=== PATIENT | female | born 1960 | race American Indian/Alaskan Native ===

== ENCOUNTER 2018-11-16 08:12 | Day surgery (SDC) | payer MEDICARE, MEDICAID ==
[2018-11-16] MEDS ORDERED: fentaNYL 100 MCG/2 ML SDV ONE (09:56)
[2018-11-16] MEDS ORDERED: Midazolam 1 MG/ML 2 ML SDV ONE (09:56)
[2018-11-16] MEDS ORDERED: Propofol 200 MG/20 ML SDV ONE (09:56)
[2018-11-16] MEDS ORDERED: Ondansetron 4 MG/2 ML SDV ONE (10:03)
[2018-11-16] MEDS ORDERED: Dexamethasone 4 MG/ML 5 ML MDV ONE (10:03)
--- NOTE | 2018-11-16 10:15 | PCM.PREANE ---
Preanesthetic Assessment - Anesthesia/Transfusion/Family Hx Anesthesia History: Prior Anesthesia Without Reaction Family History of Anesthesia Reaction: No Transfusion History: Prior Transfusion Without Reaction Intubation History: Unknown - Review of Systems General: No Symptoms Pulmonary: No Symptoms Cardiovascular: No Symptoms Gastrointestinal: No Symptoms Neurological: No Symptoms Other: Reports: None - Physical Assessment Height: 5 ft 4 in Weight: 70.307 kg ASA Class: 2 Mental Status: Alert & Oriented x3 Airway Class: Mallampati = 2 Dentition: Reports: Normal Dentition Thyro-Mental Finger Breadths: 2 Mouth Opening Finger Breadths: 3 ROM/Head Extension: Full Lungs: Clear to Auscultation, Normal Respiratory Effort Cardiovascular: Regular Rate, Regular Rhythm - Lab Values: Laboratory Last Values WBC 15.30 K/uL (4.0-11.0) H 11/15/18 15:47 RBC 2.64 M/uL (4.30-5.90) L 11/15/18 15:47 Hgb 10.4 g/dL (12.0-16.0) L 11/15/18 15:47 Hct 30.2 % (36.0-46.0) L 11/15/18 15:47 MCV 114.4 fL (80.0-98.0) H 11/15/18 15:47 MCH 39.4 pg (27.0-32.0) H 11/15/18 15:47 MCHC 34.4 g/dL (31.0-37.0) 11/15/18 15:47 RDW Std Deviation 66.9 fl (28.0-62.0) H 11/15/18 15:47 RDW Coeff of Earl 16 % (11.0-15.0) H 11/15/18 15:47 Plt Count 661 K/uL (150-400) H 11/15/18 15:47 MPV 11.20 fL (7.40-12.00) 11/15/18 15:47 Nucleated RBC % 0.0 /100WBC 11/15/18 15:47 Nucleated RBCs # 0 K/uL 11/15/18 15:47 POC Glucose 267 mg/dL (60-110) H 11/16/18 09:57 Urine Color YELLOW 11/15/18 15:47 Urine Appearance CLEAR 11/15/18 15:47 Urine pH 5.5 (5.0-8.0) 11/15/18 15:47 Ur Specific [place] 1.020 (1.001-1.035) 11/15/18 15:47 Urine Protein NEGATIVE mg/dL (NEGATIVE) 11/15/18 15:47 Urine Glucose (UA) >=1000 mg/dL (NEGATIVE) 11/15/18 15:47 Urine Ketones NEGATIVE mg/dL (NEGATIVE) 11/15/18 15:47 Urine Occult Blood NEGATIVE (NEGATIVE) 11/15/18 15:47 Urine Nitrite NEGATIVE (NEGATIVE) 11/15/18 15:47 Urine Bilirubin NEGATIVE (NEGATIVE) 11/15/18 15:47 Urine Urobilinogen 0.2 EU/dL (<2.0) 11/15/18 15:47 Ur Leukocyte Esterase NEGATIVE (NEGATIVE) 11/15/18 15:47 - Allergies Allergies/Adverse Reactions: Allergies Allergy/AdvReac Type Severity Reaction Status Date / Time azithromycin [From Zithromax] Allergy Rash Verified 11/13/18 11:17 - Blood Blood Available: No - Anesthesia Plan Pre-Op Medication Ordered: None - Acknowledgements Anesthesia Type Planned: General Anesthesia Pt an Appropriate Candidate for the Planned Anesthesia: Yes Alternatives and Risks of Anesthesia Discussed w Pt/Guardian: Yes Pt/Guardian Understands and Agrees with Anesthesia Plan: Yes PreAnesthesia Questionnaire HEENT History: Reports: Allergic Rhinitis, Cataract Respiratory History: Reports: Asthma Other Respiratory History: states rarely uses inhaler 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: Musculoskeletal History: Reports: Back Pain, Chronic, Neck Pain, Chronic Endocrine/Metabolic History: Reports: Diabetes, Type II, Hypothyroidism Hematologic History: Reports: Other (See Below) Other Hematologic History: CDA, Congenital Dyserythropoiectic Anemia - Past Surgical History HEENT Surgical History: Reports: Cataract Surgery, Other (See Below) Other HEENT Surgeries/Procedures: nasal cautery for nosebleed GI Surgical History: Reports: Cholecystectomy, Hernia, Abdominal, Other (See Below) Other GI Surgeries/Procedures: Spleenectomy Female Surgical History: Reports: D&C - SUBSTANCE USE Smoking Status *Q: Current Every Day Smoker (one pack lasts 3-4 days at present time) Tobacco Use Within Last Twelve Months: Cigarettes Recreational Drug Use History: Yes Recreational Drug Type: Reports: Marijuana/Hashish - HOME MEDS Home Medications: Home Meds Albuterol [Ventolin HFA] 1 - 2 puff INH ASDIRECTED PRN 11/13/18 [History] Folic Acid 1 mg PO DAILY 11/13/18 [History] Glimepiride 4 mg PO QAM 11/13/18 [History] Levothyroxine 150 mcg PO QAM 11/13/18 [History] Saxagliptin HCl [Onglyza] 5 mg PO DAILY 11/13/18 [History] metFORMIN [Glucophage XR] 1,500 mg PO ACDINNER 11/13/18 [History] - CURRENT (IN HOUSE) MEDS Current Meds: Current Medications Discontinued Medications Dexamethasone (Dexamethasone) Confirm Administered Dose 20 mg .ROUTE .STK-MED ONE Stop: 11/16/18 10:04 Fentanyl (Sublimaze) Confirm Administered Dose 100 mcg .ROUTE .STK-MED ONE Stop: 11/16/18 09:57 Lidocaine HCl (Xylocaine-Mpf 1%) Confirm Administered Dose 5 mls @ as directed .ROUTE .STK-MED ONE Stop: 11/16/18 10:04 Midazolam HCl (Versed 1 Mg/Ml) Confirm Administered Dose 2 mg .ROUTE .STK-MED ONE Stop: 11/16/18 09:57 Ondansetron HCl (Zofran) Confirm Administered Dose 4 mg .ROUTE .STK-MED ONE Stop: 11/16/18 10:04 Propofol (Diprivan 20 Ml) Confirm Administered Dose 200 mg .ROUTE .STK-MED ONE Stop: 11/16/18 09:57
[2018-11-16] MEDS ORDERED: Albuterol/Ipratropium 3.0-0.5 MG/3 ML Neb Soln ONE (11:56)
[2018-11-16] MEDS ORDERED: Lactated Ringers 1,000 ML IV SCH (12:00)
[2018-11-16] MEDS ORDERED: Albuterol/Ipratropium 3.0-0.5 MG/3 ML Neb Soln NEB ONE (12:01)
[2018-11-16] MEDS ORDERED: fentaNYL 100 MCG/2 ML SDV IVPUSH PRN (12:28)
--- NOTE | 2018-11-16 12:36 | PCM.OPNOTE ---
- General Post-Op/Procedure Note Date of Surgery/Procedure: 11/16/18 Operative Procedure(s): Hystoscopy,D&C Pre Op Diagnosis: Bleeding Post-Op Diagnosis: Same Anesthesia Technique: General LMA Primary Surgeon: Ezequiel Araiza EBL in mLs: 20 Complications: None Condition: Good
--- NOTE | 2018-11-16 12:37 | PCM.DCSUM1 ---
Discharge Summary - Hospital Course Diagnosis: Stroke: No - Discharge Data Discharge Date: 11/16/18 Discharge Disposition: Home, Self-Care 01 Condition: Good - Patient Summary/Data Operative Procedure(s) Performed: Hystoscopy,D&C - Patient Instructions Diet: Usual Diet as Tolerated Activity: As Tolerated Driving: Do Not Drive Showering/Bathing: May Shower - Discharge Plan Home Medications: Home Meds Albuterol [Ventolin HFA] 1 - 2 puff INH ASDIRECTED PRN 11/13/18 [History] Folic Acid 1 mg PO DAILY 11/13/18 [History] Glimepiride 4 mg PO QAM 11/13/18 [History] Levothyroxine 150 mcg PO QAM 11/13/18 [History] Saxagliptin HCl [Onglyza] 5 mg PO DAILY 11/13/18 [History] metFORMIN [Glucophage XR] 1,500 mg PO ACDINNER 11/13/18 [History] - Discharge Summary/Plan Comment DC Time >30 min.: Yes - General Info Date of Service: 11/16/18 Functional Status: Reports: Pain Controlled - Review of Systems General: Reports: No Symptoms HEENT: Reports: No Symptoms Pulmonary: Reports: No Symptoms Cardiovascular: Reports: No Symptoms Gastrointestinal: Reports: No Symptoms Genitourinary: Reports: No Symptoms Musculoskeletal: Reports: No Symptoms Skin: Reports: No Symptoms Neurological: Reports: No Symptoms Psychiatric: Reports: No Symptoms - Patient Data Vitals - Most Recent: Last Vital Signs Temp 36.9 C 11/16/18 09:00 Pulse 87 11/16/18 09:00 Resp 16 11/16/18 09:00 BP 136/61 11/16/18 09:00 Pulse Ox 93 L 11/16/18 09:00 Weight - Most Recent: 70.307 kg Lab Results - Last 24 hrs: Laboratory Results - last 24 hr 11/15/18 11/15/18 11/16/18 Range/Units 15:47 15:47 09:57 WBC 15.30 H (4.0-11.0) K/uL RBC 2.64 L (4.30-5.90) M/uL Hgb 10.4 L (12.0-16.0) g/dL Hct 30.2 L (36.0-46.0) % MCV 114.4 H (80.0-98.0) fL MCH 39.4 H (27.0-32.0) pg MCHC 34.4 (31.0-37.0) g/dL RDW Std Deviation 66.9 H (28.0-62.0) fl RDW Coeff of Earl 16 H (11.0-15.0) % Plt Count 661 H (150-400) K/uL MPV 11.20 (7.40-12.00) fL Nucleated RBC % 0.0 /100WBC Nucleated RBCs # 0 K/uL POC Glucose 267 H (60-110) mg/dL Urine Color YELLOW Urine Appearance CLEAR Urine pH 5.5 (5.0-8.0) Ur Specific [place] 1.020 (1.001-1.035) Urine Protein NEGATIVE (NEGATIVE) mg/dL Urine Glucose (UA) >=1000 (NEGATIVE) mg/dL Urine Ketones NEGATIVE (NEGATIVE) mg/dL Urine Occult Blood NEGATIVE (NEGATIVE) Urine Nitrite NEGATIVE (NEGATIVE) Urine Bilirubin NEGATIVE (NEGATIVE) Urine Urobilinogen 0.2 (<2.0) EU/dL Ur Leukocyte Esterase NEGATIVE (NEGATIVE) Med Orders - Current: Current Medications Fentanyl (Sublimaze) 50 mcg IVPUSH Q5M PRN PRN Reason: Pain (severe 7-10) Stop: 11/17/18 12:28 Lactated Ringer's (Ringers, Lactated) 1,000 mls @ 125 mls/hr IV ASDIRECTED JOHANNY Discontinued Medications Albuterol/Ipratropium (Duoneb 3.0-0.5 Mg/3 Ml) Confirm Administered Dose 3 ml .ROUTE .STK-MED ONE Stop: 11/16/18 11:57 Last Admin: 11/16/18 12:01 Dose: 3 ml Albuterol/Ipratropium (Duoneb 3.0-0.5 Mg/3 Ml) 3 ml NEB ONETIME ONE Stop: 11/16/18 12:02 Dexamethasone (Dexamethasone) Confirm Administered Dose 20 mg .ROUTE .STK-MED ONE Stop: 11/16/18 10:04 Fentanyl (Sublimaze) Confirm Administered Dose 100 mcg .ROUTE .STK-MED ONE Stop: 11/16/18 09:57 Lidocaine HCl (Xylocaine-Mpf 1%) Confirm Administered Dose 5 mls @ as directed .ROUTE .STK-MED ONE Stop: 11/16/18 10:04 Midazolam HCl (Versed 1 Mg/Ml) Confirm Administered Dose 2 mg .ROUTE .STK-MED ONE Stop: 11/16/18 09:57 Ondansetron HCl (Zofran) Confirm Administered Dose 4 mg .ROUTE .STK-MED ONE Stop: 11/16/18 10:04 Propofol (Diprivan 20 Ml) Confirm Administered Dose 200 mg .ROUTE .STK-MED ONE Stop: 11/16/18 09:57 - Exam General: Reports: Alert, Oriented HEENT: Reports: Pupils Equal, Pupils Reactive, EOMI, Mucous Membr. Moist/[place] Neck: Reports: Supple Lungs: Reports: Clear to Auscultation, Normal Respiratory Effort Cardiovascular: Reports: Regular Rate, Regular Rhythm GI/Abdominal Exam: Normal Bowel Sounds, Soft, Non-Tender, No Organomegaly, No Distention, No Abnormal Bruit, No Mass, Pelvis Stable (Female) Exam: Normal External Exam, Normal Speculum Exam, Normal Bimanual Exam Rectal (Female) Exam: Normal Exam, Normal Rectal Tone Back Exam: Reports: Normal Inspection, Full Range of Motion Extremities: Normal Inspection, Normal Range of Motion, Non-Tender, No Pedal Edema, Normal Capillary Refill Skin: Reports: Warm, Dry, Intact Wound/Incisions: Reports: Healing Well Neurological: Reports: No New Focal Deficit Psy/Mental Status: Reports: Alert, Normal Affect, Normal Mood
--- NOTE | 2018-11-16 13:41 | PCM48HPAN ---
Post Anesthesia Note - EVALUATION WITHIN 48HRS OF ANESTHETIC Vital Signs in Normal Range: Yes Patient Participated in Evaluation: Yes Respiratory Function Stable: Yes Airway Patent: Yes Cardiovascular Function Stable: Yes Hydration Status Stable: Yes Pain Control Satisfactory: Yes Nausea and Vomiting Control Satisfactory: Yes SaO2: 95 Resp Rate: 16
--- NOTE | 2018-11-16 15:58 | OR ---
SURGEON: Ezequiel Araiza MD DATE OF PROCEDURE: PREOPERATIVE DIAGNOSIS: Postmenopausal bleeding. POSTOPERATIVE DIAGNOSIS: Postmenopausal bleeding. OPERATION PERFORMED: Hysteroscopy, D and C. DIRECTOR RIVER RESTORATION: OR tech. ANESTHESIA: LMA. ESTIMATED BLOOD LOSS: Less than 20 mL. COMPLICATIONS: None. FINDING: The hysteroscopic finding essentially is normal. The entire uterine cavity is visualized. There is no lesion seen in the endometrial cavity. INDICATIONS FOR SURGERY: This patient does have postmenopausal bleeding. An attempt to do endometrial biopsy in the office was unsuccessful because of the patient's discomfort, so the patient is admitted for hysteroscopy, D and C. PROCEDURE IN DETAIL: The patient was brought to the OR, properly identified. After adequate level of LMA anesthesia, the patient was placed in lithotomy position prepped and draped in sterile fashion as usual. Then straight catheter was used to empty the bladder and a weighted speculum was placed in the vagina, and a single-tooth tenaculum was applied to the cervix. The cervix sequentially dilated to accommodate the hysteroscope. Hysteroscopy was performed. The entire endometrial cavity was visualized. There was no lesion and the endometrial lining is almost atrophied. After ascertaining there was no pathology with the hysteroscopy, the hysteroscope was removed and a gentle D and C was performed. The specimen was collected and sent for histopathology. At this time, the procedure ended. Instrument and sponge count was correct. The patient tolerated the procedure well and went to recovery room in stable general condition. WINTER / MADHAVI /[id number]
== END 2018-11-16 13:50 | disposition home or self-care (01) ==
LOC: MW.SDS 08:12
PROVIDERS: ATTEND Obstetrics & Gynecology
DX: N95.0 Postmenopausal bleeding (principal); E11.9 Type 2 diabetes mellitus without complications; E03.9 Hypothyroidism, unspecified; J45.909 Unspecified asthma, uncomplicated; F17.210 Nicotine dependence, cigarettes, uncomplicated; Z79.84 Long term (current) use of oral hypoglycemic drugs; Z79.899 Other long term (current) drug therapy; Z88.1 Allergy status to other antibiotic agents; Z91.030 Bee allergy status; Z91.048 Other nonmedicinal substance allergy status; Z98.890 Other specified postprocedural states
CPT/HCPCS: 36415; 58558; 81003; 82962; 85027; 94640; J1100; J2001; J2250; J2405; J2704; J3010; J7120; 00952; J7620-GY

== ENCOUNTER 2021-09-30 07:07 | Day surgery (SDC) | payer MEDICARE, MEDICAID, OTHER ==
[~2021-09-30 07:07] MED LIST: Lactated Ringers 1,000 ML IV SCH
[2021-09-30] MEDS ORDERED: fentaNYL 100 MCG/2 ML SDV ONE (07:15)
[2021-09-30] MEDS ORDERED: Propofol 200 MG/20 ML SDV ONE (08:22)
== END 2021-09-30 10:30 | disposition home or self-care (01) ==
LOC: MW.SDS 07:07
PROVIDERS: ATTEND Surgery
DX: K59.00 Constipation, unspecified (principal); J44.9 Chronic obstructive pulmonary disease, unspecified; E11.9 Type 2 diabetes mellitus without complications; E03.9 Hypothyroidism, unspecified; F17.210 Nicotine dependence, cigarettes, uncomplicated; Z88.1 Allergy status to other antibiotic agents; Z91.030 Bee allergy status; Z79.899 Other long term (current) drug therapy; Z79.890 Hormone replacement therapy; Z79.84 Long term (current) use of oral hypoglycemic drugs; Z98.890 Other specified postprocedural states
CPT/HCPCS: 45378; 82947; J2370; J2704; J3010; J7120; 00812

== ENCOUNTER 2024-11-19 13:30 | Emergency (ER) | payer MEDICARE, MEDICAID, OTHER ==
[2024-11-19] MEDS ORDERED: Sodium Chloride 0.9% 2.5 ML Syringe FLUSH PRN (13:49)
[2024-11-19] MEDS ORDERED: Sodium Chloride 0.9% 10 ML Syringe FLUSH PRN (13:49)
[2024-11-19 14:16] LABS: INR 1.04 (0.86-1.11); PTT,PARTIAL THROMBOPLSTIN TIME 23.2 SEC (23.9-30.7)
[2024-11-19 14:21] LABS: HEMATOCRIT 26.8 % (37.0-47.0); HEMOGLOBIN 9.2 g/dL (12.0-16.0); MEAN CORPUSCULAR HEMOGLOBIN 42.4 pg (28.0-32.0); MEAN CORPUSCULAR HGB CONC 34.3 g/dL (32.0-36.0); MEAN CORPUSCULAR VOLUME 123.5 fL (83.0-99.0); MEAN PLATELET VOLUME 11.2 fL (9.4-12.3); PLATELET COUNT,PLT 557 K/uL (150-400); RED BLOOD CELL COUNT 2.17 M/uL (4.10-5.30)
[2024-11-19 14:29] LABS: CALCIUM 8.3 mg/dL (8.5-10.1); CREATININE 1.1 mg/dL (0.6-1.0); EST CRCL DRUG DOSING (CG) 46.49 mL/min; POTASSIUM,K 4.2 mmol/L (3.5-5.1)
[2024-11-19 14:48] LABS: BASOPHILS ABSOLUTE MAN 0.12 K/uL (0.00-0.20); BASOPHILS PERCENT MAN 1 % (0-1); EOSINOPHILS ABSOLUTE MAN 0.24 K/uL (0.00-0.45); EOSINOPHILS PERCENT MAN 2 % (0-6); LYMPHOCYTES ABSOLUTE MAN 7.62 K/uL (1.00-4.80); LYMPHOCYTES PERCENT MAN 63 % (24-44); MONOCYTES ABSOLUTE MAN 0.97 K/uL (0.00-0.80); MONOCYTES PERCENT MAN 8 % (0-8); SEG NEUTROPHILS ABSOLUTE MAN 3.15 K/uL (1.80-7.70); SEG NEUTROPHILS PERCENT MAN 26 % (41-71); TARGET CELLS 1+ SLIGHT
[2024-11-19 14:49] LABS: ACANTHOCYTES 1+ SLIGHT
[2024-11-19 14:53] LABS: SCHISTOCYTES 1+ SLIGHT
[2024-11-19 14:56] LABS: POIKILOCYTOSIS 2+ MODERATE
== END 2024-11-19 15:09 | disposition home or self-care (01) ==
LOC: MW.ED 13:30
DX: E11.65 Type 2 diabetes mellitus with hyperglycemia (principal); D64.9 Anemia, unspecified; J44.9 Chronic obstructive pulmonary disease, unspecified; E11.9 Type 2 diabetes mellitus without complications; E03.9 Hypothyroidism, unspecified; F17.210 Nicotine dependence, cigarettes, uncomplicated; Z88.1 Allergy status to other antibiotic agents; Z91.030 Bee allergy status; Z91.048 Other nonmedicinal substance allergy status; Z91.018 Allergy to other foods; Z79.51 Long term (current) use of inhaled steroids; Z79.899 Other long term (current) drug therapy; Z79.82 Long term (current) use of aspirin; Z79.4 Long term (current) use of insulin
CPT/HCPCS: 36415; 71045; 71045-26; 80048; 82947; 83880; 84484; 85025; 85610; 85730; 93005; 93010; 99283; 99285

== ENCOUNTER 2025-04-07 17:07 | Emergency (ER) | payer MEDICARE, MEDICAID, OTHER ==
[2025-04-07] MEDS ORDERED: Sodium Chloride 0.9% 10 ML Syringe FLUSH PRN (18:17)
[2025-04-07] MEDS ORDERED: Sodium Chloride 0.9% 2.5 ML Syringe FLUSH PRN (18:17)
[2025-04-07 18:38] LABS: MEAN PLATELET VOLUME 10.5 fL (9.4-12.3); NRBC ABSOLUTE 0.05 K/uL (0.00-0.02); NRBC PERCENT 0.4 /100WBC (0.0-0.2); PLATELET COUNT,PLT 795 K/uL (150-400); RED BLOOD CELL COUNT 2.30 M/uL (4.10-5.30); WHITE BLOOD CELL COUNT,WBC 14.18 K/uL (3.9-11.3)
[2025-04-07 19:02] LABS: A/G RATIO 1.2 (0.9-1.6); ALANINE AMINOTRANSFERASE,ALT 19.0 IU/L (14-63); ASPARTATE AMNIOTRANSFERASE,AST 17.0 IU/L (15-37); BILIRUBIN TOTAL 2.8 mg/dL (0.2-1.0); BLOOD UREA NITROGEN,BUN 25.0 mg/dL (7.0-18.0); CARBON DIOXIDE,CO2 29.3 mmol/L (21.0-32.0); CHLORIDE,CL 97.0 mmol/L (98-107); CREATININE 1.1 mg/dL (0.6-1.0); EST CRCL DRUG DOSING (CG) 46.49 mL/min; GLUCOSE RANDOM 353.0 mg/dL (74-106); POTASSIUM,K 5.2 mmol/L (3.5-5.1); PROTEIN TOTAL,TP 7.4 g/dL (6.4-8.2); SODIUM,NA 134.0 mmol/L (136-145)
[2025-04-07 19:05] LABS: ESTIMATED GFR 56.0 mL/min (>60)
[2025-04-07] MEDS: cefTRIAXone 1 GM in Water For Injection, Sterile 10 ML IVPUSH ONE (19:15)
[2025-04-07 19:24] LABS: EOSINOPHILS ABSOLUTE MAN 1.70 K/uL (0.00-0.45); EOSINOPHILS PERCENT MAN 12 % (0-6); LYMPHOCYTES ABSOLUTE MAN 5.67 K/uL (1.00-4.80); LYMPHOCYTES PERCENT MAN 40 % (24-44); MONOCYTES ABSOLUTE MAN 1.28 K/uL (0.00-0.80); MONOCYTES PERCENT MAN 9 % (0-8); SEG NEUTROPHILS ABSOLUTE MAN 5.53 K/uL (1.80-7.70); SEG NEUTROPHILS PERCENT MAN 39 % (41-71)
[2025-04-07 19:25] LABS: ATYPICAL LYMPHOCYTES OCCASIONAL
== END 2025-04-07 20:20 | disposition home or self-care (01) ==
LOC: MW.ED 17:07
DX: L03.114 Cellulitis of left upper limb (principal); E11.9 Type 2 diabetes mellitus without complications; J44.9 Chronic obstructive pulmonary disease, unspecified; E03.9 Hypothyroidism, unspecified; F17.200 Nicotine dependence, unspecified, uncomplicated; Z79.899 Other long term (current) drug therapy; Z79.890 Hormone replacement therapy; Z79.84 Long term (current) use of oral hypoglycemic drugs; Z88.1 Allergy status to other antibiotic agents; Z91.030 Bee allergy status; Z91.09 Other allergy status, other than to drugs and biological substances; Z79.82 Long term (current) use of aspirin; Z75.3 Unavailability and inaccessibility of health-care facilities; Z59.82 Transportation insecurity
CPT/HCPCS: 36415; 80053; 85025; 96374; 99283; J0696